=== PATIENT | female | born 1935 | race Caucasian/White ===

== ENCOUNTER → 2022-09-16 | Outpatient (CLI) | payer MEDICARE ==
--- NOTE | 2022-09-16 19:20 | BD ---
EXAMINATION TYPE: Axial Bone Density DATE OF EXAM: 09/16/2022 CLINICAL HISTORY: 87 years old Female. ICD-10 CODE: M81.0 OSTEOPOROSIS Height: 59 Weight: 106.3 FRAX RISK QUESTIONS: Alcohol (3 or more units per day): no Family History (Parent hip fracture): yes Glucocorticoids (More than 3mos): no (Ex: prednisone, prednisolone, methylprednisolone, dexamethasone, and hydrocortisone). History of Fracture in Adulthood: no Secondary Osteoporosis: 1. Type 1 Diabetes: no 2. Hyperthyroidism: no 3. Menopause before 45: no 4. Malnutrition: no 5. Chronic liver disease: no Rheumatoid Arthritis: no Current Tobacco Use: no RISK FACTORS HISTORY OF: Surgery to Spine/Hip(right/left)/Wrist (right/left): no Family History of Osteoporosis: no Active: no Diet low in dairy products/other sources of calcium: yes Postmenopausal woman: yes Lost more than 2 inches in height since high school: yes MEDICATIONS: Additional History: EXAM MEASUREMENTS: Bone mineral densitometry was performed using the [employer]. Bone mineral density as measured about the Lumbar spine is: ----- L1-L4(G/cm2): 1.030 T Score Values are as follows: ----- L1: -1.4 ----- L2: -1.4 ----- L3: -1.6 ----- L4: -0.9 ----- L1-L4: -1.2 Z Score Values are as follows: ----- L1: 1.1 ----- L2: 1.1 ----- L3: 0.9 ----- L4: 1.6 ----- L1-L4: 1.2 Bone mineral density : baseline Bone mineral density about the R hip (g/cm2): 0.726 Bone mineral density about the L hip (g/cm2): 0.706 T Score values are as follows: -----R Neck: -1.0 -----L Neck: -1.2 -----R Total: -2.2 -----L Total: -2.4 Z Score values are as follows: -----R Neck: 1.8 -----L Neck: 1.6 -----R Total: 0.5 -----L Total: 0.3 Bone mineral density : baseline FRAX%s: The graph provided illustrates a 19.5 % chance for a major osteoporotic fx and a 11.5% chance for the hips probability for fx in 10 years time. IMPRESSION: Osteopenia (T Score between -2.5 and -1). There is slightly increased risk of fracture and the patient may be considered for treatment. Re-Screen 2-5 years. NOTE: T-SCORE=SD OF THE YOUNG ADULT MEAN.
== END | disposition home or self-care (01) ==
LOC: RADBDWWP 11:20
PROVIDERS: ATTEND Family Medicine
DX: M85.89 Other specified disorders of bone density and structure, multiple sites (principal); M81.0 Age-related osteoporosis without current pathological fracture; E55.9 Vitamin D deficiency, unspecified; R41.3 Other amnesia; R60.0 Localized edema; G50.0 Trigeminal neuralgia; R23.3 Spontaneous ecchymoses; Z60.2 Problems related to living alone
CPT/HCPCS: 77080

== ENCOUNTER 2023-09-19 18:59 | Emergency (ER) | payer MEDICARE ==
[2023-09-19 19:08] VITALS: TEMP 98
--- NOTE | 2023-09-19 19:37 | ED ---
Extremity Problem HPI - General Chief complaint: Extremity Problem,Nontraumatic Stated complaint: L sided leg pain Time Seen by Provider: 09/19/23 19:09 Source: patient, RN notes reviewed Mode of arrival: ambulatory Limitations: no limitations - History of Present Illness Initial comments: This is an 88-year-old female who presents to the emergency department for left leg pain. States that it started 2 days ago and seemed to just gradually develop throughout the day. Patient is currently complaining of pain being more prominent in the left foot. However, her family states that the caregiver said she was complaining of pain in the knee. Prior to this beginning they believe that she may have turned in a way that somehow "tweaked" the knee. Patient is however denying this and they are not entirely sure if there was an injury or not. Pain is worse with trying to ambulate but not particularly bothersome when sitting still. Family called her PCP, who advised she come to the emergency department to rule out a DVT. Additionally, family notes concern of a rash under her breasts and inquired about a possible yeast infection. MD Complaint: extremity pain - Related Data Previous Rx's Medication Instructions Recorded Cephalexin [Keflex] 500 mg PO Q6HR 7 Days #28 cap 09/19/23 Nystatin 100,000 Unit/gm Powd 1 applic TOPICAL TID #30 gm 09/19/23 [Mycostatin Powder] Allergies Allergy/AdvReac Type Severity Reaction Status Date / Time aspirin Allergy Unknown Verified 09/19/23 19:07 Review of Systems ROS Statement: Those systems with pertinent positive or pertinent negative responses have been documented in the HPI. ROS Other: All systems not noted in ROS Statement are negative. Past Medical History Past Medical History: Cancer, Heart Failure Additional Past Medical History / Comment(s): breast CA History of Any Multi-Drug Resistant Organisms: None Reported Past Surgical History: No Surgical Hx Reported Past Psychological History: No Psychological Hx Reported Smoking Status: Never smoker Past Alcohol Use History: None Reported Past Drug Use History: None Reported General Exam Limitations: no limitations General appearance: alert, in no apparent distress Head exam: Present: atraumatic, normocephalic, normal inspection Respiratory exam: Present: normal lung sounds bilaterally. Absent: respiratory distress, wheezes, rales, rhonchi, stridor Cardiovascular Exam: Present: regular rate, normal rhythm, normal heart sounds. Absent: systolic murmur, diastolic murmur, rubs, gallop, clicks Extremities exam: Present: other (Tenderness to palpation over the left calf. No tenderness to the left foot or knee. Full range of motion. No deformities. Mild pitting edema. 2+ DP and PT pulses.) Neurological exam: Present: alert, oriented X3, CN II-XII intact Psychiatric exam: Present: normal affect, normal mood Skin exam: Present: warm, dry, intact, other (Erythema under the breasts bilaterally consistent with cutaneous candidiasis) Course Vital Signs 09/19/23 19:03 Temperature 98 F Pulse Rate 74 Respiratory 18 Rate Blood Pressure 106/66 O2 Sat by Pulse 98 Oximetry Medical Decision Making - Medical Decision Making This is an 88 year old female who presents to the emergency department for left leg pain. Was pt. sent in by a medical professional or institution? @ -No Did you speak to anyone other than the patient for history? @ -Family provided the information about what the caregiver said. Did you review nursing and triage notes? @ -Yes, and I agree, it is accurate with regards to the patient's symptoms. Were old charts reviewed? @ -No Differential Diagnosis? @ -Differential Leg Pain: Leg fracture, leg sprain, DVT, PVD, arterial insufficiency, iliac artery aneurysm, cellulitis, compartment syndrome, tendinopathy, nerve entrapment, piriformis syndrome, osteoarthritis, rhabdomyolysis, myositis, cramping from an electrolyte imbalance, this is not meant to be an all inclusive list. EKG interpreted by me (3pts min.)? @ -Not obtained X-rays interpreted by me (1pt min.)? @ -X-ray of the left tib-fib and foot obtained. My interpretation identifies no acute fractures. CT interpreted by me (1pt min.)? @ -Not obtained U/S interpreted by me (1pt. min.)? @ -Duplex ultrasound of the left lower extremity obtained. My interpretation identifies no evidence of a DVT. What testing was considered but not performed? (CT, X-rays, U/S, labs)? Why? @ -None What meds were considered but not given? Why? @ -None Did you discuss the management of the patient with other professionals? @ -No Did you reconcile home meds? @ -No Was smoking cessation discussed for >3mins.? @ -No Was critical care preformed (if so, how long)? @ -No Were there social determinants of health that impacted care today? How? (Homelessness, low income, unemployed, alcoholism, drug addiction, transportation, low edu. Level, literacy, decrease access to med. care, retirement, rehab)? @ -No Was there de-escalation of care discussed even if they declined? (Discuss DNR or withdrawal of care, Hospice)? @ -No What co-morbidities impacted this encounter? (DM, HTN, Smoking, COPD, CAD, Cancer, CVA, Hep., AIDS, mental health diagnosis, sleep apnea, morbid obesity)? @ -None Was patient admitted / discharged? @ -Discharged. Duplex ultrasound of the left lower extremity obtained revealing no evidence of a DVT or other acute process. X-ray of the left tib- fib and foot obtained demonstrating soft tissue swelling without any other acute injuries. They advised correlation for cellulitis. She does have some mild erythema and swelling. Erythema seems to be more so bilateral, however given that she does have discomfort with this finding, will start the patient on antibiotics. Prescription for Keflex provided. Ceftriaxone administered in the emergency department prior to discharge. Additionally, she did have erythema under the breasts consistent with a yeast infection. Nystatin powder presc ription provided for that as well. Advised Tylenol as needed for pain relief and follow-up with her primary care provider. Undiagnosed new problem with uncertain prognosis? @ -None Drug Therapy requiring intensive monitoring for toxicity (Heparin, Nitro, Insulin, Cardizem)? @ -None Were any procedures done? @ -None Diagnosis/symptom? @ -Left leg pain, cellulitis, skin yeast infection Acute, or Chronic, or Acute on Chronic? @ -Acute Uncomplicated (without systemic symptoms) or Complicated (systemic symptoms)? @ -Uncomplicated Side effects of treatment? @ -None Exacerbation, Progression, or Severe Exacerbation] @ -Not applicable Poses a threat to life or bodily function? @ -No Return precautions reviewed in depth, the patient is instructed to return to the emergency department with any new, worsening, or concerning symptoms. Patient verbalized understanding. This case was discussed in detail with the attending ED physician, Dr. Grove. Presentation, findings, and treatment plan discussed in detail as well. - Radiology Data Radiology results: report reviewed, image reviewed Disposition Clinical Impression: Cellulitis of left lower extremity, Yeast infection of the skin Disposition: HOME SELF-CARE Instructions (If sedation given, give patient instructions): Cellulitis (ED), Skin Yeast Infection (ED) Additional Instructions: Return to the emergency department with any new, worsening, or concerning symptoms. Take the antibiotic as prescribed for 7 days. Apply the nystatin powder under the breast 2-3 times daily and try to keep the area dry. Take Tylenol as needed for pain relief. Follow up with your primary care provider in 1-2 days. Prescriptions: Cephalexin [Keflex] 500 mg PO Q6HR 7 Days #28 cap Nystatin 100,000 Unit/gm Powd [Mycostatin Powder] 1 applic TOPICAL TID #30 gm Is patient prescribed a controlled substance at d/c from ED?: No Referrals: Pierre Domínguez MD [Primary Care Provider] - 1-2 days Time of Disposition: 20:51
--- NOTE | 2023-09-19 20:03 | US ---
EXAMINATION TYPE: US venous doppler duplex LE LT DATE OF EXAM: 09/19/2023 7:40 PM COMPARISON: NONE CLINICAL INDICATION: Female, 88 years old with history of Leg pain; Left knee and foot pain, no h/o d vt SIDE PERFORMED: Left TECHNIQUE: The lower extremity deep venous system is examined utilizing real time linear array sonog kesha with graded compression, doppler sonography and color-flow sonography. VESSELS IMAGED: Common Femoral Vein Deep Femoral Vein Greater Saphenous Vein * Femoral Vein Popliteal Vein Small Saphenous Vein * Proximal Calf Veins (* superficial vessels) Left Leg: Negative for DVT IMPRESSION: Grayscale, color doppler, spectral doppler imaging performed of the deep veins of the lo wer extremities. There is normal flow, compressibility, vascular waveforms.
--- NOTE | 2023-09-19 20:04 | XR ---
EXAMINATION TYPE: XR tibia fibula LT DATE OF EXAM: 09/19/2023 7:58 PM CLINICAL INDICATION:Female, 88 years old with history of Pain, possible injury; H COMPARISON: None TECHNIQUE: XR tibia fibula LT; tibia/fibula was examined in AP and lateral projections. FINDINGS/IMPRESSION: Soft tissue swelling around the leg and ankle without evidence of fracture. Correlate for cellulitis
--- NOTE | 2023-09-19 20:05 | XR ---
EXAMINATION TYPE: XR foot complete LT DATE OF EXAM: 09/19/2023 7:58 PM CLINICAL INDICATION:Female, 88 years old with history of Pain, possible injury; [facility] COMPARISON: None TECHNIQUE: XR foot complete LT examined in the AP, oblique, and lateral projections. FINDINGS: Diffuse osseous demineralization, this limits evaluation for fractures. No evidence of any acute osse ous pathology. No evidence of soft tissue swelling. Soft tissue swelling without evidence of subcuta neous gas or erosion to suggest osteomyelitis. Multifocal degeneration changes throughout the joints of the foot with osteophyte formation and joint space narrowing. IMPRESSION: 1. Soft tissue swelling throughout the foot no evidence for osseous erosion. 2. No evidence of acute fracture. 3. Multifocal degeneration changes throughout the joints of the foot.
[2023-09-19] MEDS: cefTRIAXone 1,000 MG VIAL (IM USE) IM STA (21:20)
[2023-09-19] MEDS: NYSTATIN 100,000 UNIT/GM POWD 15 GM TOPICAL STA (21:21)
[2023-09-20 04:01] VITALS: RESP 16
[2023-09-20 04:08] VITALS: BP 130/76; PULSE 68
== END 2023-09-19 21:15 | disposition home or self-care (01) ==
LOC: EC 18:59
DX: L03.116 Cellulitis of left lower limb (principal); B37.2 Candidiasis of skin and nail; Z88.6 Allergy status to analgesic agent
CPT/HCPCS: 73590; 73630; 93971; 99284; 96372; J0696